=== PATIENT | male | born 2000 | race African-American/Black ===

== ENCOUNTER 2020-11-10 08:09 | Emergency (ER) | payer OTHER ==
[~2020-11-10] VITALS: Ht 165.1 cm; Wt 78.0 kg
[2020-11-10 08:09] VITALS: BP 159/100
--- NOTE | 2020-11-10 08:09 | NUR ---
BIBA TAKEN TO BED 11
[2020-11-10] MEDS ORDERED: DOPPLER MC ONE (08:12)
--- NOTE | 2020-11-10 08:21 | NUR ---
20 Y/O MALE BIBA FROM HOME FOR WEAKNESS X "YEARS". PT STATES CONSUMING PERCOCET TO RELIEVE WEAKNESS X 3-4 MONTHS; EFFECTIVER PER PATIENT. LAST DOSE OF PERCOCET LAST NIGHT. BREATHING EVEN AND UNLABORED, SPO2 100% RA, CLEAR LUNG SOUNDS THROUGHOUT, CHEST EXPANSION SYMMETRICAL. BP 123/76 LYING, HR 85 NORMAL RHYTHM. PT STAES NAUSEA, ZOFRAN 30mg PO GIVEN EN ROUTE BY [facility]. PT ON MONITOR, ABLE TO AMBULATE INDEPDENDENTLY, NORMAL GAIT, SYMMETRICAL STRENGTH BILATERAL. AO4, SKIN WARM AND DRY. BED IN LOWEST POSITION, LOCKED, X1 SIDERAILS UP. PMH - ASTHMA, BRONCHITIS, REC. CANNIBIS USE NKA
[2020-11-10] MEDS ORDERED: NACL 0.9% 1,000 ML IV ONE (08:45)
[2020-11-10] MEDS ORDERED: ONDANSETRON 4 MG/2 ML VIAL IVP ONE (08:45)
[2020-11-10] MEDS ORDERED: ACETAMINOPHEN 325 MG TAB PO ONE (08:50)
[2020-11-10 09:12] LABS: BASOPHILS % (AUTO) 0.7 % (0.0-2.0); EOSINOPHILS % (AUTO) 0.3 % (0.0-4.0); HEMATOCRIT 48.6 % (36-52); HEMOGLOBIN 16.2 g/dL (12.0-18.0); LYMPHOCYTES % (AUTO) 17.2 % (20.5-51.1); MEAN CORPUSCULAR HEMOGLOBIN 28 pg (27-31); MEAN CORPUSCULAR HGB CONC 33 g/dL (33-37); MEAN CORPUSCULAR VOLUME 84.5 fL (80-94); MONOCYTES # (AUTO) 0.4 K/uL (0.8-1.0); NEUTROPHILS # (AUTO) 4.5 K/uL (1.8-7.7); NEUTROPHILS % (AUTO) 74.8 % (42.2-75.2); PLATELET COUNT (AUTO) 372 K/uL (140-450); RED BLOOD CELL COUNT(AUTO) 5.75 MIL/uL (4.20-6.10); RED CELL DISTRIBUTION WIDTH 13.1 % (11.6-13.7)
[2020-11-10 09:27] LABS: ALBUMIN 4.9 g/dL (3.4-5.0); ANION GAP 12.5 (8-16); CARBON DIOXIDE 30.4 mmol/L (21-32); POTASSIUM 3.9 mmol/L (3.5-5.1); TOTAL BILIRUBIN 0.8 mg/dL (0.0-1.0)
--- NOTE | 2020-11-10 09:43 | NUR ---
PT STATES EXPERIENCING DIARRHEA; 3 LOOSE STOOLS WITHIN THE PAST HOUR
[2020-11-10] MEDS ORDERED: ONDA4TAB PO (10:01)
--- NOTE | 2020-11-10 10:06 | NUR ---
SPOKE TO PTS MOTHER AND PROVIDED UPDATE
--- NOTE | 2020-11-10 10:11 | NUR ---
NOVEL CORONAVIRUS SWAB OBTAINED AND TAKEN TO LAB
[2020-11-10 10:43] VITALS: BP 159/100
--- NOTE | 2020-11-10 10:44 | NUR ---
Patient discharged with v/s stable. Written and verbal after care instructions ABOUT VOMITING, OPIOID WITHDRAWAL, OPIOID USE DISORDER given and explained. Patient alert, oriented and verbalized understanding of instructions. Ambulatory with steady gait. All questions addressed prior to discharge. ID band removed. Patient advised to follow up with PMD. Rx of ONDANSETRON given. Patient educated on indication of medication including possible reaction and side effects. Opportunity to ask questions provided and answered.
== END 2020-11-10 10:20 | disposition home or self-care (01) ==
LOC: MED 08:09
DX: R11.2 Nausea with vomiting, unspecified (principal); R42 Dizziness and giddiness; R06.02 Shortness of breath; F11.10 Opioid abuse, uncomplicated; Z20.822 Contact with and (suspected) exposure to COVID-19
CPT/HCPCS: 36415; 80053; 83690; 85025; 93005; 96361; 96374; 99284; J2405; J7030; U0003

== ENCOUNTER 2020-11-13 18:58 | Emergency (ER) | payer OTHER ==
[~2020-11-13] VITALS: Ht 170.2 cm; Wt 74.4 kg
[~2020-11-13 18:58] MED LIST: ONDA4TAB PO
[2020-11-13 19:19] VITALS: BP 130/92
--- NOTE | 2020-11-13 19:19 | NUR ---
TO BED AMBULATORY
--- NOTE | 2020-11-13 19:38 | NUR ---
PT TAKEN TO BED 6
[2020-11-13] MEDS ORDERED: NACL 0.9% 1,000 ML IV ONE (19:50)
--- NOTE | 2020-11-13 19:52 | NUR ---
20 YR OLD MALE PRESENTED TO THE ER WITH CC OF ABD PAIN. PT IS AOX4. PT STATES 6/10 NON-RADIATING SHARP ABD PAIN. PT STATES NAUSEA AND VOMITING. PT STATES ABD PAIN, NAUSEA, AND VOMITING STARTED 5 DAYS AGO WHEN STOPPED TAKING PERCOCET. PT DENIES DRUG USE. PT DENIES OTHER MEDICAL COMPLAINTS. BED LOCKED IN LOWEST POSITION WITH 1 SIDE RAIL UP. HISTORY- ASTHMA ALLERGIES- NONE
--- NOTE | 2020-11-13 20:26 | NUR ---
BLOOD SAMPLE COLLECTED AND HANDED TO LAB.
[2020-11-13 20:55] LABS: BASOPHILS % (AUTO) 0.7 % (0.0-2.0); EOSINOPHILS # (AUTO) 0.1 K/uL (0-0.4); HEMATOCRIT 46.6 % (36-52); HEMOGLOBIN 15.6 g/dL (12.0-18.0); LYMPHOCYTES # (AUTO) 1.9 K/uL (2.0-11.5); LYMPHOCYTES % (AUTO) 25.9 % (20.5-51.1); MEAN CORPUSCULAR HEMOGLOBIN 28 pg (27-31); MEAN CORPUSCULAR HGB CONC 34 g/dL (33-37); MEAN CORPUSCULAR VOLUME 84.1 fL (80-94); MONOCYTES # (AUTO) 0.6 K/uL (0.8-1.0); MONOCYTES % (AUTO) 8.7 % (1.7-9.3); NEUTROPHILS # (AUTO) 4.7 K/uL (1.8-7.7); NEUTROPHILS % (AUTO) 63.7 % (42.2-75.2); PLATELET COUNT (AUTO) 389 K/uL (140-450); RED BLOOD CELL COUNT(AUTO) 5.55 MIL/uL (4.20-6.10); RED CELL DISTRIBUTION WIDTH 12.8 % (11.6-13.7); WHITE BLOOD COUNT (AUTO) 7.3 K/uL (4.5-11.0)
[2020-11-13] MEDS ORDERED: ONDANSETRON 4 MG/2 ML VIAL IVP ONE (21:05)
[2020-11-13 21:06] LABS: ALBUMIN 4.4 g/dL (3.4-5.0); ANION GAP 13.2 (8-16); CARBON DIOXIDE 27.1 mmol/L (21-32); POTASSIUM 3.3 mmol/L (3.5-5.1); TOTAL BILIRUBIN 1.6 mg/dL (0.0-1.0)
--- NOTE | 2020-11-13 21:50 | NUR ---
PT FOUND AWAKE IN SEMI-PAUL'S POSITION IN BED. PT DENIES MEDICAL COMPLAINTS. BED LOCKED IN LOWEST POSITION WITH 1 SIDE RAIL UP.
--- NOTE | 2020-11-13 21:53 | NUR ---
Dr. Rodriguez examining patient.
--- NOTE | 2020-11-13 22:04 | NUR ---
Urine sample walked to lab.
[2020-11-13] MEDS ORDERED: CLON-268 PO (22:17)
[2020-11-13] MEDS ORDERED: BEN10 PO (22:17)
[2020-11-13] MEDS ORDERED: ONDA4TAB PO (22:17)
[2020-11-13 22:31] VITALS: BP 134/77
--- NOTE | 2020-11-13 22:31 | NUR ---
Patient discharged with v/s stable. Written and verbal after care instructions given and explained. Patient alert, oriented and verbalized understanding of instructions. Ambulatory with steady gait. All questions addressed prior to discharge. ID band removed. Patient advised to follow up with PMD. Rx of DICYCLOMINE HYDROCHLORIDE, CLONIDINE HCL, ONDANSETRON HCL given. Patient educated on indication of medication including possible reaction and side effects. Opportunity to ask questions provided and answered.
[2020-11-13 22:58] LABS: APPEARANCE,URINE CLEAR (CLEAR); BILIRUBIN,URINE 1+ (NEGATIVE); BLOOD, URINE NEGATIVE (NEGATIVE); COLOR,URINE YELLOW (YELLOW); LEUKOCYTE ESTERASE ,URINE NEGATIVE (NEGATIVE); NITRITE, URINE NEGATIVE (NEGATIVE); PH,URINE 6.5 (5.0-9.0); UGLUCOSE NEGATIVE (NEGATIVE)
== END 2020-11-13 22:31 | disposition home or self-care (01) ==
LOC: MED 18:58
DX: E86.0 Dehydration (principal); F11.23 Opioid dependence with withdrawal; R19.7 Diarrhea, unspecified; R10.9 Unspecified abdominal pain; J45.909 Unspecified asthma, uncomplicated; Z79.899 Other long term (current) drug therapy
CPT/HCPCS: 36415; 80053; 81003; 83690; 85025; 96361; 96374; 99283; J2405

== ENCOUNTER 2021-07-09 14:26 | Emergency (ER) | payer OTHER ==
[~2021-07-09] VITALS: Ht 167.6 cm; Wt 64.9 kg
[~2021-07-09 14:26] MED LIST changes: +BEN10 PO; +CLON0.1T16 PO
--- NOTE | 2021-07-09 14:35 | NUR ---
FOLLOWING TRIAGE, PT STATED "I NEED TO GO" AND LEFT ER, PT AMBULATED WITH STEADY GAIT. ID BAND REMOVED. DR MEI MADE AWARE
--- NOTE | 2021-07-09 14:36 | NUR ---
PATIENT LEFT WITHOUT BEING SEEN BY DR. MEI. NO FURTHER CARE PROVIDED FOR PATIENT.
[2021-07-09 14:37] VITALS: BP 143/87
== END 2021-07-09 14:36 | disposition left against medical advice (07) ==
LOC: MED 14:26
DX: R51.9 Headache, unspecified (principal); R11.2 Nausea with vomiting, unspecified; R10.9 Unspecified abdominal pain; Z53.21 Procedure and treatment not carried out due to patient leaving prior to being seen by health care provider

== ENCOUNTER 2024-01-06 19:22 | Emergency (ER) | payer OTHER ==
[~2024-01-06] VITALS: Ht 167.6 cm; Wt 62.6 kg
[2024-01-06 19:32] VITALS: BP 128/73; PULSE 115; RESP 20; TEMP 98.6; O2SAT 100
[2024-01-06] MEDS: DEXAMETHASONE 10 MG/ML VIAL PO ONE (20:43)
[2024-01-06] MEDS: AMOXIL/CLAVULANATE 875/125 MG 1 TAB PO ONE (20:43)
[2024-01-06] MEDS ORDERED: AMOX1TAB8 PO (21:45)
[2024-01-06 22:04] VITALS: BP 128/73; PULSE 115; RESP 20; TEMP 98.6; O2SAT 100
== END 2024-01-06 22:04 | disposition home or self-care (01) ==
LOC: MED 19:22
DX: K04.7 Periapical abscess without sinus (principal); R22.0 Localized swelling, mass and lump, head; Z79.899 Other long term (current) drug therapy
CPT/HCPCS: 70110; 70360; 99284; J1100

== ENCOUNTER 2024-01-09 17:37 | Emergency (ER) | payer OTHER ==
[~2024-01-09] VITALS: Ht 167.6 cm; Wt 71.7 kg
[~2024-01-09 17:37] MED LIST changes: +AMOX1TAB8 PO
[2024-01-09 17:49] VITALS: BP 127/77; PULSE 110; RESP 18; TEMP 97.9; O2SAT 97
[2024-01-09 19:40] LABS: BASOPHILS % (AUTO) 0.4 % (0.0-2.0); EOSINOPHILS # (AUTO) 0.2 K/uL (0-0.4); EOSINOPHILS % (AUTO) 2.8 % (0.0-4.0); HEMATOCRIT 33.5 % (36-52); HEMOGLOBIN 11.4 g/dL (12.0-18.0); LYMPHOCYTES # (AUTO) 1.9 K/uL (2.0-11.5); LYMPHOCYTES % (AUTO) 27.6 % (20.5-51.1); MEAN CORPUSCULAR HEMOGLOBIN 28 pg (27-31); MEAN CORPUSCULAR HGB CONC 34 g/dL (33-37); MEAN CORPUSCULAR VOLUME 83.3 fL (80-94); MONOCYTES # (AUTO) 0.7 K/uL (0.8-1.0); MONOCYTES % (AUTO) 9.6 % (1.7-9.3); NEUTROPHILS # (AUTO) 4.1 K/uL (1.8-7.7); NEUTROPHILS % (AUTO) 59.6 % (42.2-75.2); PLATELET COUNT (AUTO) 431 K/uL (140-450); RED BLOOD CELL COUNT(AUTO) 4.02 MIL/uL (4.20-6.10); RED CELL DISTRIBUTION WIDTH 13.3 % (11.6-13.7); WHITE BLOOD COUNT (AUTO) 6.8 K/uL (4.8-10.8)
[2024-01-09 19:47] LABS: ANION GAP 8.3 (8-16); CALCIUM 8.8 mg/dL (8.5-10.1); CARBON DIOXIDE 32.4 mmol/L (21-32); CREATININE 0.8 mg/dL (0.6-1.3); POTASSIUM 3.7 mmol/L (3.5-5.1)
[2024-01-09 19:52] LABS: ALBUMIN 2.8 g/dL (3.4-5.0); BILIRUBIN,DIRECT 0.1 mg/dL (0.0-0.3); TOTAL BILIRUBIN 0.3 mg/dL (0.0-1.0); TOTAL PROTEIN, SERUM 6.7 g/dL (6.4-8.2)
[2024-01-09] MEDS ORDERED: AMOX1TAB8 PO (21:54)
[2024-01-09] MEDS ORDERED: ceFAZolin 1,000 MG VIAL ONE (22:24)
[2024-01-09] MEDS: methylPREDNISolone SS 125 MG/2 ML VIAL IVP ONE (22:39)
[2024-01-09] MEDS: diphenhydrAMINE 50 MG/ML VIAL IVP ONE (22:39)
[2024-01-09 22:53] LABS: BILIRUBIN,URINE NEGATIVE (NEGATIVE); BLOOD, URINE NEGATIVE (NEGATIVE); COLOR,URINE YELLOW (YELLOW); LEUKOCYTE ESTERASE ,URINE NEGATIVE (NEGATIVE); NITRITE, URINE POSITIVE (NEGATIVE); PROTEIN,URINE NEGATIVE (NEGATIVE); UGLUCOSE NEGATIVE (NEGATIVE)
[2024-01-09 22:57] LABS: APPEARANCE,URINE SLIGHTLY HAZY (CLEAR)
[2024-01-09 22:59] LABS: BACTERIA,URINE 1+ /HPF (None Seen); MUCUS,URINE None Seen /LPF (None Seen); RBC,URINE 0 /HPF (0-5); SQUAMOUS EPITHELIAL CELL,UR 0-3 (FEW) /LPF (0-3 (FEW)); WBC,URINE 0-5 /HPF (0-5)
[2024-01-09 23:02] LABS: AMPHETAMINE, URINE POSITIVE ng/ml (NEG <=1000); BARBITURATE, URINE NEGATIVE ng/ml (NEG <=200); BENZODIAZEPINE, URINE NEGATIVE ng/mL (NEG <=200)
[2024-01-09 23:03] LABS: CANNABINOID, URINE NEGATIVE ng/mL (NEG <=50); COCAINE, URINE NEGATIVE ng/mL (NEG <=300); OPIATE, URINE NEGATIVE ng/mL (NEG <=2000); PHENCYCLIDINE SCREEN,URINE NEGATIVE ng/mL (NEG <=25)
[2024-01-10 01:15] VITALS: BP 122/72; PULSE 96; RESP 18; TEMP 98; O2SAT 97
== END 2024-01-10 01:15 | disposition home or self-care (01) ==
LOC: MED 17:37
DX: S02.651A Fracture of angle of right mandible, initial encounter for closed fracture (principal); F15.129 Other stimulant abuse with intoxication, unspecified; J45.909 Unspecified asthma, uncomplicated; Z79.899 Other long term (current) drug therapy; Y08.89XA Assault by other specified means, initial encounter; Y93.89 Activity, other specified; Y92.89 Other specified places as the place of occurrence of the external cause; Y99.8 Other external cause status
CPT/HCPCS: 36415; 70450; 70486; 80048; 80076; 80305; 81001; 85025; 96374; 96375; 99285; J0690; J1200; J2930

== ENCOUNTER 2024-02-14 07:10 | Emergency (ER) | payer OTHER ==
[~2024-02-14] VITALS: Ht 154.9 cm; Wt 70.5 kg
[2024-02-14 07:38] VITALS: BP 148/95; PULSE 101; RESP 18; TEMP 97.2; O2SAT 99
[2024-02-14] MEDS ORDERED: ATA25 PO (07:57)
[2024-02-14] MEDS: HYDROXYZINE HYDROCHLORIDE 25 MG TAB PO ONE (08:05)
[2024-02-14 08:24] VITALS: BP 148/95; PULSE 101; RESP 18; TEMP 97.2; O2SAT 99
== END 2024-02-14 08:24 | disposition home or self-care (01) ==
LOC: MED 07:10
DX: R44.2 Other hallucinations (principal); F11.90 Opioid use, unspecified, uncomplicated; J45.909 Unspecified asthma, uncomplicated; Z79.899 Other long term (current) drug therapy
CPT/HCPCS: 99283